=== PATIENT | female | born 1960 | race Caucasian/White ===

== ENCOUNTER → 2017-10-27 | Outpatient (CLI) | payer BC ==
[~2017-10-27] MED LIST: BIRTH CONTROL1 EAC1 PO; FLEXERIL10 MG PO; HYDROCODONE BIT1 T11 PO; PREDNICOT20 MG PO
== END | disposition home or self-care (01) ==
LOC: MAMMO 08:29
DX: Z12.31 Encounter for screening mammogram for malignant neoplasm of breast (principal)

== ENCOUNTER → 2018-12-05 | Outpatient (CLI) | payer BC | END | disposition home or self-care (01) | LOC: MAMMO 11-21 16:40 | DX: Z12.31 Encounter for screening mammogram for malignant neoplasm of breast (principal) ==

== ENCOUNTER → 2020-10-13 | Outpatient (CLI) | payer OTHER | END | disposition home or self-care (01) | LOC: COVID19 12:18 | PROVIDERS: ATTEND Family Medicine | DX: U07.1 COVID-19 (principal); J06.9 Acute upper respiratory infection, unspecified ==

== ENCOUNTER 2024-02-06 21:18 | Emergency (ER) | payer OTHER ==
[~2024-02-06] VITALS: Ht 167.6 cm; Wt 56.7 kg
[2024-02-06] MEDS ORDERED: METHOCARBAMOL 500 MG TAB PO ONE (21:35)
[2024-02-06] MEDS ORDERED: methylPREDNISolone sod succ 125 MG VIAL IM ONE (21:35)
[2024-02-06] MEDS ORDERED: METHOCARBAMOL500 M1 PO (21:36)
[2024-02-06] MEDS ORDERED: PREDNISONE20 M1 PO (21:36)
== END 2024-02-06 21:48 | disposition home or self-care (01) ==
LOC: ED 21:18
DX: S39.012A Strain of muscle, fascia and tendon of lower back, initial encounter (principal); Z88.1 Allergy status to other antibiotic agents; Z88.6 Allergy status to analgesic agent; Z98.890 Other specified postprocedural states; X50.1XXA Overexertion from prolonged static or awkward postures, initial encounter; Y93.89 Activity, other specified; Y92.009 Unspecified place in unspecified non-institutional (private) residence as the place of occurrence of the external cause; Y99.8 Other external cause status